=== PATIENT | female | born 1975 | race Native Hawaiian/Other Pacific Islander ===

== ENCOUNTER 2018-10-26 14:29 | Outpatient (CLI) | payer OTHER ==
--- NOTE | 2018-10-26 15:55 | MRI ---
MRI Lumbar Spine Noncontrast: HISTORY: Radicular pain COMPARISON: None FINDINGS: Conus medullaris is normal in morphology and terminates at the L1 level. There is prominent distention of the partially imaged urinary bladder. Correlate clinically. There is congenital AP diameter narrowing of the vertebral canal Multilevel bilateral mild to moderate degenerative facet hypertrophy. L1-2:No significant stenosis L2-3:Mild right paracentral disc protrusion without significant central canal or foraminal stenosis L3-4:Broad-based disc bulge with mild narrowing of the central canal. No high-grade foraminal stenosi s L4-5:Annular fissure of the central zone. Concentric disc bulge. Mild to moderate central canal narro wing. No significant foraminal narrowing. L5-S1:Mild broad-based disc bulge without significant central canal or neural foraminal stenosis IMPRESSION: Multilevel mild degenerative change of lumbar spine, as delineated above.
--- NOTE | 2018-10-26 16:59 | MRI ---
MRI CERVICAL SPINE WITHOUT CONTRAST: 10/26/18 HISTORY: Headache and right sided shoulder pain. COMPARISON: None. TECHNIQUE: Cervical spine MRI is performed without intravenous gadolinium administration. Multisequential, multi planar imaging is performed. FINDINGS: Straightening of normal cervical lordosis may be due to position. Appropriate T1 marrow signal intens ity. No significant STIR hyperintensity to suggest vertebral body edema or ligamentous injury. The visualized brain parenchyma, cervicomedullary junction, cervical cord, and the upper thoracic cor d have a normal size and signal intensity. C2-C3: No significant central canal stenosis or neural foraminal narrowing. C3-C4: No significant central canal stenosis or foraminal narrowing. C4-C5: Left paracentral disc protrusion. Minimal indentation upon the thecal sac and left hemicord. N o cord hyperintensity. Mild central canal stenosis. Neural foramina are patent bilaterally. C5-C6: Central disc protrusion deforms the midline thecal sac. Mild central canal stenosis. No cord h yperintensity. Neural foramina are patent bilaterally. C6-C7: No significant central canal stenosis. Neural foramina are patent. C7-T1: No significant central canal stenosis. Neural foramina are patent. IMPRESSION: 1. Degenerative disc disease at C5-C6 with mass effect and deformity of the ventral cord. Mild c entral canal stenosis. 2. Left paracentral disc protrusion at C4-C5 with mass effect upon the left hemicord. Mild steno sis. POS: OFF
== END 2018-10-26 14:30 | disposition home or self-care (01) ==
LOC: SCSMRI 14:29
PROVIDERS: ATTEND Psychiatry & Neurology Neurology
DX: M47.22 Other spondylosis with radiculopathy, cervical region (principal); M48.02 Spinal stenosis, cervical region; M50.121 Cervical disc disorder at C4-C5 level with radiculopathy; G95.89 Other specified diseases of spinal cord; M47.816 Spondylosis without myelopathy or radiculopathy, lumbar region
CPT/HCPCS: 72141; 72148

== ENCOUNTER 2019-05-03 14:30 | Outpatient (CLI) | payer OTHER ==
--- NOTE | 2019-05-03 14:51 | RAD ---
2 view chest: [05/03/2019] Comparison:None available HISTORY: Right-sided rib pain FINDINGS: Heart and mediastinal contours are grossly unremarkable. No pneumothorax or pleural fluid. No focal consolidation or alveolar edema. IMPRESSION: No acute findings.
== END 2019-05-03 14:31 | disposition home or self-care (01) ==
LOC: SCSRAD 14:30
PROVIDERS: ATTEND Nurse Practitioner Acute Care
DX: R07.81 Pleurodynia (principal)
CPT/HCPCS: 71046